=== PATIENT | male | born 1985 | race Caucasian/White ===

== ENCOUNTER 2021-05-09 19:35 | Emergency (ER) | payer BC ==
[2021-05-09] MEDS ORDERED: HYDROmorphone 1 MG/ML Syringe IVPUSH STA (20:06)
[2021-05-09] MEDS ORDERED: Ondansetron 4 MG/2 ML SDV IVPUSH ONE (20:06)
[2021-05-09] MEDS ORDERED: Sodium Chloride 0.9% 10 ML Syringe FLUSH PRN (20:06)
[2021-05-09] MEDS ORDERED: Sodium Chloride 0.9% 1,000 ML IV SCH (20:15)
--- NOTE | 2021-05-09 20:43 | EDM.PDOC ---
ED HPI GENERAL MEDICAL PROBLEM - General Chief Complaint: Abdominal Pain Stated Complaint: LEFT SIDE ABDOMINAL PAIN Time Seen by Provider: 05/09/21 19:58 Source of Information: Reports: Patient, RN Notes Reviewed History Limitations: Reports: No Limitations - History of Present Illness INITIAL COMMENTS - FREE TEXT/NARRATIVE: Patient is a 35-year-old male who presents to the ER for the evaluation of his left-sided abdominal pain. Patient notes that this started at around noon, when he was at [facility], [place], this did make him double over in pain and he was hunched over while he was walking around [facility] [place]. States that the pain is mainly in his left lower and left upper quadrant and does radiate to the back, and seems to run along the bottom side of his ribs. He states that he went home, had a hot bath, and lay down for a little bit and seem to make it better, but then after he got out of the bath the pain worsened again. He has not felt this pain before ever. He still retains his appendix and gallbladder, and he has had one hernia repaired when he was a teenager. He is not had any fevers or chills, cough or shortness of breath, nausea vomiting or diarrhea. He did not take any sort of pain medications prior to coming to the ER. He denies any past medical history, and he takes no regular meds. States that he had a regular bowel movement around 10 AM. Further denies having a medical provider. Left Abdominal Pain Score (Numeric/FACES): 10 - Related Data Allergies Allergy/AdvReac Type Severity Reaction Status Date / Time No Known Allergies Allergy Verified 05/09/21 19:50 Home Meds: Home Meds . [No Known Home Meds] 05/09/21 [History] Past Medical History - Past Health History Medical/Surgical History: Denies Medical/Surgical History - Past Surgical History GI Surgical History: Reports: Hernia Repair/Other (states had hernia repaired when he was a teenager) Social & Family History - Tobacco Use Tobacco Use Status *Q: Never Tobacco User Second Hand Smoke Exposure: No - Caffeine Use Caffeine Use: Reports: Soda - Recreational Drug Use Recreational Drug Use: No ED ROS GENERAL - Review of Systems Review Of Systems: Comprehensive ROS is negative, except as noted in HPI. ED EXAM, GI/ABD - Physical Exam Exam: See Below Exam Limited By: No Limitations General Appearance: Alert, WD/WN, No Apparent Distress Eyes: Bilateral: Normal Appearance Respiratory/Chest: No Respiratory Distress, Lungs Clear, Normal Breath Sounds, No Accessory Muscle Use, Chest Non-Tender Cardiovascular: Normal Peripheral Pulses, Regular Rate, Rhythm, No Edema GI/Abdominal Exam: Normal Bowel Sounds, Soft, No Distention, No Mass, Tender (LLQ and LUQ mainly) Extremities: Normal Inspection, Normal Capillary Refill Neurological: Alert, Oriented, Normal Cognition, No Motor/Sensory Deficits Psychiatric: Normal Affect, Normal Mood Skin Exam: Warm, Dry, Intact, Normal Color, No Rash Course - Vital Signs Last Recorded V/S: Last Vital Signs Temp 97 F 05/09/21 19:48 Pulse 96 05/09/21 19:48 Resp 20 05/09/21 19:48 BP 127/82 05/09/21 19:48 Pulse Ox 95 05/09/21 19:48 - Orders/Labs/Meds Orders: Active Orders 24 hr Category Date Time Status Peripheral IV Care [RC] . DIRECTED Care 05/09/21 20:06 Ordered Abdomen Pelvis w Cont [CT] Stat Exams 05/09/21 20:06 Ordered UA W/MICROSCOPIC [URIN] Stat Lab 05/09/21 20:06 Ordered Sodium Chloride 0.9% [Normal Saline] 1,000 ml Med 05/09/21 20:15 Ordered IV ASDIRECTED Sodium Chloride 0.9% [Normal Saline] 100 ml Med 05/09/21 21:30 Active IV ASDIRECTED Sodium Chloride 0.9% [Saline Flush] Med 05/09/21 20:06 Ordered 10 ml FLUSH ASDIRECTED PRN Peripheral IV Insertion Adult [OM.PC] Routine Oth 05/09/21 20:06 Ordered Medication Orders Sodium Chloride (Normal Saline) 1,000 mls @ 999 mls/hr IV ASDIRECTED LIU Last Admin: 05/09/21 20:23 Dose: 999 mls/hr Documented by: HERMMIC Sodium Chloride (Normal Saline) 100 mls @ 60 drops/min IV ASDIRECTED LIU Last Admin: 05/09/21 21:25 Dose: 60 drops/min Documented by: ONEIGIN Sodium Chloride (Sodium Chloride 0.9% 10 Ml Syringe) 10 ml FLUSH ASDIRECTED PRN PRN Reason: Keep Vein Open Last Admin: 05/09/21 20:22 Dose: 10 ml Documented by: HERMMIC Labs: Laboratory Tests 05/09/21 05/09/21 05/09/21 Range/Units 19:55 19:55 22:15 WBC 10.05 H (4.23-9.07) K/mm3 RBC 4.78 (4.63-6.08) M/mm3 Hgb 14.1 (13.7-17.5) gm/dl Hct 41.9 (40.1-51.0) % MCV 87.7 (79.0-92.2) fl MCH 29.5 (25.7-32.2) pg MCHC 33.7 (32.2-35.5) g/dl RDW Std Deviation 44.0 H (35.1-43.9) fL Plt Count 332 (163-337) K/mm3 MPV 9.4 (9.4-12.3) fl Neut % (Auto) 71.8 H (34.0-67.9) % Lymph % (Auto) 21.0 L (21.8-53.1) % [place] % (Auto) 5.0 L (5.3-12.2) % Eos % (Auto) 1.7 (0.8-7.0) Baso % (Auto) 0.4 (0.1-1.2) % Neut # (Auto) 7.22 H (1.78-5.38) K/mm3 Lymph # (Auto) 2.11 (1.32-3.57) K/mm3 [place] # (Auto) 0.50 (0.30-0.82) K/mm3 Eos # (Auto) 0.17 (0.04-0.54) K/mm3 Baso # (Auto) 0.04 (0.01-0.08) K/mm3 Manual Slide Review Normal smear Sodium 140 (136-145) mEq/L Potassium 3.7 (3.5-5.1) mEq/L Chloride 102 (98-107) mEq/L Carbon Dioxide 21 (21-32) mEq/L Anion Gap 20.7 H (5-15) BUN 10 (7-18) mg/dL Creatinine 1.4 H (0.7-1.3) mg/dL Est Cr Clr Drug Dosing TNP Estimated GFR (MDRD) 57 (>60) mL/min BUN/Creatinine Ratio 7.1 L (14-18) Glucose 100 H (70-99) mg/dL Calcium 8.8 (8.5-10.1) mg/dL Total Bilirubin 0.5 (0.2-1.0) mg/dL AST 22 (15-37) U/L ALT 47 (16-63) U/L Alkaline Phosphatase 74 (46-116) U/L C-Reactive Protein <0.2 (<1.0) mg/dL Total Protein 8.5 H (6.4-8.2) g/dl Albumin 4.4 (3.4-5.0) g/dl Globulin 4.1 gm/dL Albumin/Globulin Ratio 1.1 (1-2) Lipase 136 (73-393) U/L Urine Color Yellow (Yellow) Urine Appearance Clear (Clear) Urine pH 6.0 (5.0-8.0) Ur Specific [place] 1.015 (1.005-1.030) Urine Protein Negative (Negative) Urine Glucose (UA) Negative (Negative) Urine Ketones Negative (Negative) Urine Occult Blood 2+ H (Negative) Urine Nitrite Negative (Negative) Urine Bilirubin Negative (Negative) Urine Urobilinogen 0.2 (0.2-1.0) Ur Leukocyte Esterase Negative (Negative) Meds: Medications Generic Name Dose Route Start Last Admin Trade Name Freq PRN Reason Stop Dose Admin Sodium Chloride 1,000 mls @ 999 mls/hr 05/09/21 20:15 05/09/21 20:23 Normal Saline IV 999 mls/hr ASDIRECTED LIU Administration Sodium Chloride 100 mls @ 60 drops/min 05/09/21 21:30 05/09/21 21:25 Normal Saline IV 60 drops/min ASDIRECTED LIU Administration Sodium Chloride 10 ml 05/09/21 20:06 05/09/21 20:22 Sodium Chloride 0.9% 10 Ml Syringe FLUSH 10 ml ASDIRECTED PRN Administration Keep Vein Open Discontinued Medications Generic Name Dose Route Start Last Admin Trade Name Freq PRN Reason Stop Dose Admin Hydromorphone HCl 1 mg 05/09/21 20:06 05/09/21 20:23 Hydromorphone 1 Mg/Ml Syringe IVPUSH 05/09/21 20:07 1 mg ONETIME STA Administration Iopamidol 100 ml 05/09/21 21:25 05/09/21 21:25 Iopamidol 612 Mg/Ml 100 Ml Bottle IVPUSH 05/09/21 21:26 100 ml ONETIME ONE Administration Ondansetron HCl 4 mg 05/09/21 20:06 05/09/21 20:23 Ondansetron 4 Mg/2 Ml Sdv IVPUSH 05/09/21 20:07 4 mg ONETIME ONE Administration - Re-Assessments/Exams Free Text/Narrative Re-Assessment/Exam: 05/09/21 20:42 Patient presents to the ER for evaluation of his abdomen pain, we will go ahead and get a CT, get some basic labs, give him IV fluids and pain and nausea medications for initial management. 05/09/21 22:04 Patient's laboratory evaluation has resulted and CT has also been completed. White cell count is 10.05 with 71% neutrophils on the auto differential, metabolic panel impressive for an elevated anion gap of 20.7, creatinine slightly elevated at 1.4, GFR at 57 CRP undetectably low at 0.2. CT demonstrates no sign of appendicitis, no sign of diverticulitis. The arterial phase scan demonstrate nonobstructing small stones within both kidneys, and mild dilatation of the left renal collecting system noted. There was also an approximately 3 mm stone within the base of the bladder consistent with recent stone passage. This is likely the cause of the patient's left sided pain. He is not given us a urine sample as well to conclude if there was blood in the urine or not, we will try to encourage him to go to the bathroom, reassessed and likely sent home with conservative measures. 05/09/21 22:40 Patient's urinalysis does show 2+ red blood cells. Which is consistent with kidney stone. We will go ahead and discharge him home at this time. Departure - Departure Time of Disposition: 22:40 Disposition: Home, Self-Care 01 Condition: Good Clinical Impression: Left renal stone - Discharge Information *PRESCRIPTION DRUG MONITORING PROGRAM REVIEWED*: No *COPY OF PRESCRIPTION DRUG MONITORING REPORT IN PATIENT NIKKI: No Instructions: Kidney Stones, [id number], Dietary Guidelines to Help Prevent Kidney Stones Referrals: PCP,None [Primary Care Provider] - Forms: ED Department Discharge Additional Instructions: You were evaluated in the ER today for your left flank pain. Your urinalysis did demonstrate some blood in urine, which is suggestive of a kidney stone at this time. The pain that you are experiencing, was likely due to the kidney stone passing, but it has passed into your bladder and you should be able to pass this without issue. A CT was done at this ER visit, this demonstrated a 3 mm stone within your bladder. You have been given a strainer, please use every time you use the bathroom to make sure that the kidney stone has passed. Laboratory evaluation demonstrated no acute abnormalities for today's purposes. Recommend that you increase your oral fluid intake to try to help the stone pass. You may take Tylenol ibuprofen every 6 hours as needed for further pain management. Please return to the ED if your symptoms change or worsen. Sepsis Event Note (ED) - Evaluation Sepsis Screening Result: No Definite Risk - Focused Exam Vital Signs: Vital Signs Temp Pulse Resp BP Pulse Ox 05/09/21 19:48 97 F 96 20 127/82 95 - My Orders Last 24 Hours: My Active Orders 05/09/21 20:06 Peripheral IV Care [RC] . DIRECTED Abdomen Pelvis w Cont [CT] Stat UA W/MICROSCOPIC [URIN] Stat Sodium Chloride 0.9% [Saline Flush] 10 ml FLUSH ASDIRECTED PRN Peripheral IV Insertion Adult [OM.PC] Routine 05/09/21 20:15 Sodium Chloride 0.9% [Normal Saline] 1,000 ml IV ASDIRECTED 05/09/21 21:30 Sodium Chloride 0.9% [Normal Saline] 100 ml IV ASDIRECTED - Assessment/Plan Last 24 Hours: My Active Orders 05/09/21 20:06 Peripheral IV Care [RC] . DIRECTED Abdomen Pelvis w Cont [CT] Stat UA W/MICROSCOPIC [URIN] Stat Sodium Chloride 0.9% [Saline Flush] 10 ml FLUSH ASDIRECTED PRN Peripheral IV Insertion Adult [OM.PC] Routine 05/09/21 20:15 Sodium Chloride 0.9% [Normal Saline] 1,000 ml IV ASDIRECTED 05/09/21 21:30 Sodium Chloride 0.9% [Normal Saline] 100 ml IV ASDIRECTED
[2021-05-09] MEDS ORDERED: Iopamidol 612 MG/ML 100 ML Bottle IVPUSH ONE (21:25)
[2021-05-09] MEDS ORDERED: Sodium Chloride 0.9% 100 ML IV SCH (21:30)
--- NOTE | 2021-05-10 10:02 | CT ---
CT abdomen and pelvis Technique: Multiple axial sections were obtained from above the dome of the diaphragm inferiorly through the pubic symphysis. Intravenous contrast was utilized. No oral contrast has been given. Delayed images were also obtained through the abdomen and pelvis. Reconstructed coronal and sagittal images were obtained. Comparison: No prior abdominal imaging is available. Findings: Visualized lung bases show minimal atelectasis on the right side. Liver contains no focal parenchymal abnormality. Gallbladder contains no calcified gallstones. Spleen is within normal limits. Pancreas shows no discrete abnormality. Adrenal glands show no nodule. Kidneys show symmetric contrast enhancement. Several small scattered calcifications are seen within both kidneys, more numerous on the left side. These most likely represent small nonobstructing calculi. These all measure less than 5 mm in size. No ureteral calcifications are seen. Small 3 mm calcification is seen within the base of the bladder. Abdominal aorta shows no aneurysm. No retroperitoneal adenopathy or mesenteric abnormalities are seen. Appendix is not definitely visualized. No pelvic mass or adenopathy is appreciated. Slight prostate calcifications are present. Delayed images show contrast within the left ureter. No contrast is seen within the bladder at this time. No additional abnormality is appreciated. Bone window settings were reviewed which show disc space narrowing and vacuum phenomena at L5-S1. Slight posterior disc bulge is seen which is calcified. Impression: 1. Persistent contrast on delayed images within the left ureter. 3 mm calcification located within the base of the bladder. Findings most likely represent recent left ureteral stone which has passed from the ureter into the bladder. 2. Other small nonobstructing calculi within both kidneys, more numerous on the left side. 3. Other chronic findings as noted above. Diagnostic code #3 I agree with preliminary report from [facility] finalized on 05/09/21, 10:49 PM CDT, code 1
== END 2021-05-09 23:01 | disposition home or self-care (01) ==
LOC: JD.ED 19:35
DX: N20.0 Calculus of kidney (principal)
CPT/HCPCS: 36415; 74177; 80053; 81001; 83690; 85025; 86140; 96374; 96375; 99284; J1170; J2405; J7030; Q9967

== ENCOUNTER 2021-05-10 21:36 | Emergency (ER) | payer BC ==
[2021-05-10] MEDS ORDERED: Ketorolac 60 MG/2 ML SDV IM ONE (22:12)
[2021-05-10] MEDS ORDERED: Acetaminophen/HYDROcodone 325-5 MG Tab PO ONE (22:12)
--- NOTE | 2021-05-10 22:20 | EDM.PDOC ---
ED HPI GENERAL MEDICAL PROBLEM - General Chief Complaint: Abdominal Pain Stated Complaint: STOMACH PAIN Time Seen by Provider: 05/10/21 21:52 Source of Information: Reports: Patient, RN Notes Reviewed - History of Present Illness INITIAL COMMENTS - FREE TEXT/NARRATIVE: 35 yr old male comes in with L low back pain. Started yesterday. Seen in ED yesterday, dx'd with 3 mm stone in bladder. Continues to have L sided back pain today without radiation to groin. No fever, chills, nausea or vomiting. Has not taken anything for the pain. Left Lower Abdomen Pain Score (Numeric/FACES): 8 - Related Data Allergies Allergy/AdvReac Type Severity Reaction Status Date / Time No Known Allergies Allergy Verified 05/09/21 19:50 Home Meds: Home Meds Naproxen [Naprosyn] 500 mg PO Q12HR #14 tab 05/10/21 [Rx] Past Medical History - Past Health History Medical/Surgical History: Denies Medical/Surgical History HEENT History: Reports: None Genitourinary History: Reports: Renal Calculus - Past Surgical History GI Surgical History: Reports: Hernia Repair/Other Social & Family History - Caffeine Use Caffeine Use: Reports: Soda ED ROS GENERAL - Review of Systems Review Of Systems: See Below Constitutional: Denies: Fever, Chills, Diaphoresis HEENT: Reports: No Symptoms Respiratory: Denies: Shortness of Breath Cardiovascular: Denies: Chest Pain GI/Abdominal: Denies: Abdominal Pain, Nausea, Vomiting Musculoskeletal: Reports: Back Pain Skin: Reports: No Symptoms Neurological: Reports: No Symptoms ED EXAM,LOWER BACK PAIN/INJURY - Physical Exam Exam: See Below General Appearance: Alert, Mild Distress Head: Atraumatic Neck: Supple Respiratory/Chest: No Respiratory Distress GI/Abdominal: Soft, Non-Tender. No: Guarding Back Exam: Other (back nontender). No: Paraspinal Tenderness, Vertebral [place] Extremities: Normal Inspection Neurological: Alert, No Motor/Sensory Deficits Course - Vital Signs Last Recorded V/S: Last Vital Signs Temp 98.4 F 05/10/21 21:51 Pulse 74 05/10/21 21:51 Resp 18 05/10/21 21:51 BP 124/75 05/10/21 21:51 Pulse Ox 100 05/10/21 21:51 - Orders/Labs/Meds Meds: Medications Discontinued Medications Generic Name Dose Route Start Last Admin Trade Name Hugo PRN Reason Stop Dose Admin Hydrocodone Bitart/Acetaminophen 1 tab 05/10/21 22:12 05/10/21 22:33 Acetaminophen/Hydrocodone 325-5 Mg Tab PO 05/10/21 22:13 1 tab ONETIME ONE Administration Ketorolac Tromethamine 60 mg 05/10/21 22:12 05/10/21 22:33 Ketorolac 60 Mg/2 Ml Sdv IM 05/10/21 22:13 60 mg ONETIME ONE Administration Departure - Departure Time of Disposition: 22:30 Disposition: Home, Self-Care 01 Condition: Fair Clinical Impression: Back pain Qualifiers: Back pain location: low back pain Chronicity: acute Back pain laterality: left Sciatica presence: without sciatica Qualified Code(s): M54.5 - Low back pain - Discharge Information Prescriptions: Naproxen [Naprosyn] 500 mg PO Q12HR #14 tab Instructions: Chronic Back Pain, [id number] Referrals: PCP,None [Primary Care Provider] - Forms: ED Department Discharge Additional Instructions: The back pain you are having after passing a kidney stone to your bladder yesterday should resolve over the next 1 to 2 days. Drink plenty of water to maintain hydration. Naprosyn 500 mg twice daily if needed for further discomfort. Prescription has been sent to [facility]. You may also take tylenol up to 3 times daily if needed for further pain relief. Strain urine to continue to watch for stone. Follow up clinic if symptoms do not resolve as expected. Return to ED as needed. Sepsis Event Note (ED) - Evaluation Sepsis Screening Result: No Definite Risk - Focused Exam Vital Signs: Vital Signs Temp Pulse Resp BP Pulse Ox 05/10/21 21:51 98.4 F 74 18 124/75 100
== END 2021-05-10 22:40 | disposition home or self-care (01) ==
LOC: JD.ED 21:36
DX: M54.5 Low back pain (principal)
CPT/HCPCS: 96372; 99283; A9270; J1885

== ENCOUNTER 2021-05-12 16:09 | Emergency (ER) | payer BC ==
[2021-05-12] MEDS ORDERED: HYDROmorphone 1 MG/ML Syringe IVPUSH STA (16:27)
[2021-05-12] MEDS ORDERED: Tamsulosin 0.4 MG Cap.ER PO STA (16:27)
[2021-05-12] MEDS ORDERED: Ondansetron 4 MG/2 ML SDV IVPUSH ONE (16:27)
[2021-05-12] MEDS ORDERED: Sodium Chloride 0.9% 1,000 ML IV ONE (16:28)
[2021-05-12] MEDS ORDERED: fentaNYL 100 MCG/2 ML SDV IVPUSH ONE (16:41)
--- NOTE | 2021-05-12 16:47 | EDM.PDOC ---
ED HPI GENERAL MEDICAL PROBLEM - General Chief Complaint: Flank Pain Stated Complaint: ABDOMINAL/BACK PAIN Time Seen by Provider: 05/12/21 16:28 Source of Information: Reports: Patient, RN Notes Reviewed History Limitations: Reports: No Limitations - History of Present Illness INITIAL COMMENTS - FREE TEXT/NARRATIVE: Patient is a 35-year-old male who presents to the ER for his ongoing abdominal and back pain. Patient was seen in this ER a few nights ago by myself, and then again by Dr. Bergman. He was diagnosed with 3 mm left kidney stone that had passed into his bladder. There were also some kidney stones within his left kidney that had not dropped into the ureters. Patient presents for ongoing pain, some nausea with a few episodes of vomiting today, notes he is been more irritable, and his coworkers asked him what was going on or what is wrong, as he is not usually like this. He does not have any fever, but states he has felt chilled. He has had no cough or shortness of breath. States that he is having generalized abdominal pain, and pain into his back. He notes that he has been increasing his water intake, but he has maybe only peed twice today. He states that he only filled the Naprosyn medication, and was taking this and did not seem to be helping much. Bilateral Flank Pain Score (Numeric/FACES): 7 - Related Data Allergies Allergy/AdvReac Type Severity Reaction Status Date / Time No Known Allergies Allergy Verified 05/12/21 16:20 Home Meds: Home Meds Hydrocodone/Acetaminophen [Hydrocodone-Acetamin 5-325 mg] 1 tab PO Q6H PRN #12 tablet 05/12/21 [Rx] Ondansetron [Zofran ODT] 4 mg PO Q8H PRN #15 tab.dis 05/12/21 [Rx] Tamsulosin [Tamsulosin 24 Hr] 0.4 mg PO DAILY #3 cap.er 05/12/21 [Rx] Past Medical History HEENT History: Reports: None Gastrointestinal History: Reports: Other (See Below) Other Gastrointestinal History: hernia Genitourinary History: Reports: Renal Calculus - Past Surgical History GI Surgical History: Reports: Hernia Repair/Other Social & Family History - Tobacco Use Tobacco Use Status *Q: Former Tobacco User Used Tobacco, but Quit: Yes Month/Year Tobacco Last Used: 11/2004 - Caffeine Use Caffeine Use: Reports: Soda - Recreational Drug Use Recreational Drug Use: No ED ROS GENERAL - Review of Systems Review Of Systems: Comprehensive ROS is negative, except as noted in HPI. ED EXAM, RENAL/ - Physical Exam Exam: See Below Exam Limited By: No Limitations General Appearance: Alert, WD/WN, No Apparent Distress Respiratory/Chest: No Respiratory Distress, Lungs Clear, Normal Breath Sounds, No Accessory Muscle Use, Chest Non-Tender Cardiovascular: Normal Peripheral Pulses, Regular Rate, Rhythm, No Edema GI/Abdominal: Normal Bowel Sounds, Soft, No Distention, No Mass, Tender (seems generally tender) Extremities: Normal Inspection, Normal Capillary Refill Neurological: Alert, Oriented, Normal Cognition, No Motor/Sensory Deficits Psychiatric: Normal Affect, Normal Mood Skin Exam: Warm, Dry, Intact, Normal Color, No Rash Course - Vital Signs Last Recorded V/S: Last Vital Signs Temp 97.7 F 05/12/21 16:15 Pulse 78 05/12/21 16:15 Resp 16 05/12/21 16:15 BP 157/92 H 05/12/21 16:15 Pulse Ox 98 05/12/21 16:15 - Orders/Labs/Meds Orders: Active Orders 24 hr Category Date Time Status Strain Urine [RC] ASDIRECTED Care 05/12/21 16:28 Active Labs: Laboratory Tests 05/12/21 05/12/21 05/12/21 Range/Units 16:35 16:45 16:45 WBC 8.59 (4.23-9.07) K/mm3 RBC 4.41 L (4.63-6.08) M/mm3 Hgb 13.2 L (13.7-17.5) gm/dl Hct 39.3 L (40.1-51.0) % MCV 89.1 (79.0-92.2) fl MCH 29.9 (25.7-32.2) pg MCHC 33.6 (32.2-35.5) g/dl RDW Std Deviation 44.2 H (35.1-43.9) fL Plt Count 291 (163-337) K/mm3 MPV 9.5 (9.4-12.3) fl Neut % (Auto) 70.9 H (34.0-67.9) % Lymph % (Auto) 22.1 (21.8-53.1) % [place] % (Auto) 6.1 (5.3-12.2) % Eos % (Auto) 0.5 L (0.8-7.0) Baso % (Auto) 0.3 (0.1-1.2) % Neut # (Auto) 6.09 H (1.78-5.38) K/mm3 Lymph # (Auto) 1.90 (1.32-3.57) K/mm3 [place] # (Auto) 0.52 (0.30-0.82) K/mm3 Eos # (Auto) 0.04 (0.04-0.54) K/mm3 Baso # (Auto) 0.03 (0.01-0.08) K/mm3 Sodium 138 (136-145) mEq/L Potassium 3.7 (3.5-5.1) mEq/L Chloride 99 (98-107) mEq/L Carbon Dioxide 26 (21-32) mEq/L Anion Gap 16.7 H (5-15) BUN 15 (7-18) mg/dL Creatinine 1.2 (0.7-1.3) mg/dL Est Cr Clr Drug Dosing 89.77 mL/min Estimated GFR (MDRD) > 60 (>60) mL/min BUN/Creatinine Ratio 12.5 L (14-18) Glucose 85 (70-99) mg/dL Calcium 9.3 (8.5-10.1) mg/dL Total Bilirubin 0.8 (0.2-1.0) mg/dL AST 24 (15-37) U/L ALT 41 (16-63) U/L Alkaline Phosphatase 82 (46-116) U/L Total Protein 8.1 (6.4-8.2) g/dl Albumin 4.3 (3.4-5.0) g/dl Globulin 3.8 gm/dL Albumin/Globulin Ratio 1.1 (1-2) Urine Color Yellow (Yellow) Urine Appearance Clear (Clear) Urine pH 6.0 (5.0-8.0) Ur Specific [place] > or = 1.030 (1.005-1.030) Urine Protein 1+ H (Negative) Urine Glucose (UA) Negative (Negative) Urine Ketones Negative (Negative) Urine Occult Blood 3+ H (Negative) Urine Nitrite Negative (Negative) Urine Bilirubin Negative (Negative) Urine Urobilinogen 0.2 (0.2-1.0) Ur Leukocyte Esterase Negative (Negative) Urine RBC 30-40 H (0-5) /hpf Urine WBC 0-5 (0-5) /hpf Ur Squamous Epith Cells 0-5 (0-5) /hpf Urine Bacteria Few (FEW) /hpf Urine Mucus Moderate H (FEW) /hpf Meds: Medications Discontinued Medications Generic Name Dose Route Start Last Admin Trade Name Freq PRN Reason Stop Dose Admin Fentanyl 50 mcg 05/12/21 16:41 05/12/21 16:51 Fentanyl 100 Mcg/2 Ml Sdv IVPUSH 05/12/21 16:42 50 mcg ONETIME ONE Administration Hydromorphone HCl 1 mg 05/12/21 16:27 05/12/21 17:12 Hydromorphone 1 Mg/Ml Syringe IVPUSH 05/12/21 16:28 Not Given ONETIME STA Sodium Chloride 1,000 mls @ 999 mls/hr 05/12/21 16:28 05/12/21 16:51 Normal Saline IV 05/12/21 17:28 999 mls/hr ASDIRECTED ONE Administration Ondansetron HCl 4 mg 05/12/21 16:27 05/12/21 16:51 Ondansetron 4 Mg/2 Ml Sdv IVPUSH 05/12/21 16:28 4 mg ONETIME ONE Administration Tamsulosin HCl 0.4 mg 05/12/21 16:27 05/12/21 16:56 Tamsulosin 0.4 Mg Cap.Er PO 05/12/21 16:28 0.4 mg ONETIME STA Administration - Re-Assessments/Exams Free Text/Narrative Re-Assessment/Exam: 05/12/21 16:48 Patient presents to the ER for the evaluation of his ongoing abdominal pain, since this seems to be more bilateral in nature, we will go ahead and repeat CT, without contrast and get some basic labs, get IV started, IV fluids, and pain meds and nausea meds for initial management. 05/12/21 17:43 Patient's urinalysis does show 30-40 red blood cells per high-power field, and 3+ occult blood, consistent with kidney stone. CT demonstrates what was thought to be prostate calcifications, but Dr. Pollard and I both did appreciate a stone within the distal left ureter, just about at the UVJ, this is somewhat oblong in shape. The appendix was also seen measuring 1 cm, there is air seen within the appendix, but no significant inflammatory change, patient's white count is not elevated, metabolic panel essentially unremarkable. Dr. Pollard does think that the air in the gentleman's appendix is due to constipation as well, and hopefully after some magnesium citrate, that this should resolve. We will go ahead and get him some pain medication, nausea medication, and some tablets of Flomax for the next few days, as the patient's never had a kidney stone before. 05/12/21 17:48 CT results were reviewed with Dr. Kerr, surgeon on-call, and he does not feel this could be acute appendicitis however if the gentleman's pain does start locating into the right lower quadrant or he has any sort of fever or worsening symptoms then he is to return to the ER, and I will make this known to the patient. Departure - Departure Time of Disposition: 17:49 Disposition: Home, Self-Care 01 Condition: Good Clinical Impression: Kidney stone on left side - Discharge Information *PRESCRIPTION DRUG MONITORING PROGRAM REVIEWED*: Yes *COPY OF PRESCRIPTION DRUG MONITORING REPORT IN PATIENT NIKKI: No Prescriptions: Tamsulosin [Tamsulosin 24 Hr] 0.4 mg PO DAILY #3 cap.er Hydrocodone/Acetaminophen [Hydrocodone-Acetamin 5-325 mg] 1 tab PO Q6H PRN #12 tablet PRN Reason: Pain Ondansetron [Zofran ODT] 4 mg PO Q8H PRN #15 tab.dis PRN Reason: Nausea Instructions: Renal Colic, [id number] Referrals: PCP,None [Primary Care Provider] - Forms: ED Department Discharge Additional Instructions: You were evaluated in the ER today for your bilateral flank pain. Your urinalysis did demonstrate some blood in urine, which is suggestive of a kidney stone at this time. A CT was done at this ER visit, this demonstrated a small stone within the distal left ureter, at the neck of the bladder). You have been given a strainer, please use every time you use the bathroom to make sure that the kidney stone has passed. Your appendix was also visualized, and there was some air in the appendix, however there is no acute inflammation, and no evidence of appendicitis at today's visit. Your case was discussed with our general surgeon, due to the appendix finding, and he agrees there is no sign of acute appendicitis at today's visit, he does caution however if you have any sort of increase in your pain, or if it starts locating in the right lower quadrant, you have any sort of fevers or chills do not hesitate to return for further management. Recommend that you increase your oral fluid intake to try to help the stone pass. You have been given a few tablets of medication to help allow the stone to pass, this would be Flomax, you will need to take 1 tablet daily for the next few days, until your symptoms have resolved, or you have visualized the stone passing in the urine. You have been given a few tablets of pain medication, please take as prescribed. These medications are highly addictive, please take as few as you need to. These medications also may cause constipation, please take a stool softener like MiraLAX while taking these medications. You were given a prescription for Zofran, and antinausea medication, please take 1 tab dissolvable under your tongue every 8 hours as needed for ongoing nausea. Medications have been electronically prescribed to the [facility] located near [facility]. You were also given a bottle of magnesium citrate while in the ER, as your CT did show you had quite a bit of stool throughout your colon as well. Please drink one half bottle, if you do not have a rather large bowel movement after this, please repeat with the last half bottle. If your pain is not much better in a week's time, you may need to follow up with your primary care physician, for a possible urology referral. Please return to the ED if your symptoms change or worsen. Sepsis Event Note (ED) - Evaluation Sepsis Screening Result: No Definite Risk - Focused Exam Vital Signs: Vital Signs Temp Pulse Resp BP Pulse Ox 05/12/21 16:15 97.7 F 78 16 157/92 H 98 - My Orders Last 24 Hours: My Active Orders 05/12/21 16:28 Strain Urine [RC] ASDIRECTED - Assessment/Plan Last 24 Hours: My Active Orders 05/12/21 16:28 Strain Urine [RC] ASDIRECTED
--- NOTE | 2021-05-12 17:28 | CT ---
CT abdomen and pelvis Technique: Multiple axial sections were obtained from above the dome of the diaphragm inferiorly through the pubic symphysis. Intravenous and oral contrast were not utilized. Study has been performed as a ureteral stone protocol. Findings: Multiple small nonobstructing calculi are seen within both kidneys measuring less than 5 mm. No ureteral dilatation or ureteral stone is seen. Visualized lung bases show nothing acute. Noncontrast appearance of the liver shows no focal abnormality. Spleen is within normal limits. Adrenal glands show no nodule. Pancreas shows no discrete abnormality. Gallbladder contains no calcified gallstones. Abdominal aorta shows no aneurysm. No retroperitoneal adenopathy or mesenteric abnormalities are seen. No pelvic mass or adenopathy is seen. Slight prostate calcifications are noted. Prostate gland shows calcifications as an incidental note. Appendix is seen and measures approximately 1.0 cm. There is air seen within what is presumed to be the appendix, no significant inflammatory change is seen. Bone window settings show disc space narrowing at L5-S1 with vacuum disc phenomena. Posterior disc bulge is seen with calcification within the posterior disc. No acute osseous abnormality is appreciated. Impression: 1. Prominent appendix measuring 1.0 cm with no inflammatory change. This is most likely incidental. Please correlate that patient has no corresponding symptoms. 2. Multiple small nonobstructing calculi within both kidneys all measuring less than 5 mm. No ureteral dilatation or ureteral stone is seen. 3. Other findings as noted above. Nothing acute is otherwise seen. Diagnostic code #2
[2021-05-12] MEDS ORDERED: Magnesium Citrate Solution 296 ML Bottle PO ONE (17:49)
== END 2021-05-12 18:19 | disposition home or self-care (01) ==
LOC: JD.ED 16:09
DX: N20.0 Calculus of kidney (principal); Z87.891 Personal history of nicotine dependence
CPT/HCPCS: 36415; 74176; 80053; 81001; 85025; 96374; 96375; 99284; A9270; J2405; J3010; J7030